=== PATIENT | female | born 1975 ===

== ENCOUNTER → 2022-04-29 10:17 | Outpatient (BNVA) | payer BC, SELFPAY | PROVIDERS: Visit Provider Family Medicine | DX: E78.5 Hyperlipidemia, unspecified (principal); R23.2 Flushing; F41.1 Generalized anxiety disorder | CPT/HCPCS: 80053; 80061; 84443; 85025 ==

== ENCOUNTER 2022-06-14 12:25 | Outpatient (CLI) | payer BC, SELFPAY ==
--- NOTE | 2022-06-14 13:45 | US_ITS ---
WS: [id number] RIGHT UPPER QUADRANT ULTRASOUND HISTORY: abd pain COMPARISON: None available. Liver: 12.1 cm in length. Normal size liver. No bile duct dilatation or mass. Portal Vein: Normal hepatopetal flow with monophasic waveform. Gallbladder: Normally distended gallbladder with no stones or wall thickening. CBD: 0.2 cm Pancreas: Normal size and echogenicity. Right kidney: 10.5 cm in length. Normal size and echogenicity. No hydronephrosis or mass. Aorta and IVC: Unremarkable abdominal aorta and IVC. No ascites. US/US gall bladder [id number] IMPRESSION: Normal RIGHT upper quadrant ultrasound.
== END 2022-06-14 12:26 | disposition home or self-care (01) ==
PROVIDERS: PCP Family Medicine; Visit Provider Surgery
DX: R10.9 Unspecified abdominal pain (principal)
CPT/HCPCS: 76705

== ENCOUNTER → 2022-07-19 17:47 | Outpatient (BNVA) | payer BC, SELFPAY | PROVIDERS: PCP Family Medicine; Visit Provider Family Medicine | DX: R50.9 Fever, unspecified (principal); J06.9 Acute upper respiratory infection, unspecified; R05.9 Cough, unspecified | CPT/HCPCS: 87400 ==

== ENCOUNTER → 2022-08-04 08:51 | Outpatient (BNVA) | payer BC, SELFPAY | PROVIDERS: PCP Family Medicine; Visit Provider Family Medicine Adult Medicine | DX: J02.8 Acute pharyngitis due to other specified organisms (principal); B97.89 Other viral agents as the cause of diseases classified elsewhere; J30.9 Allergic rhinitis, unspecified; J02.9 Acute pharyngitis, unspecified | CPT/HCPCS: 87071; 87880 ==

== ENCOUNTER → 2023-02-04 13:05 | Outpatient (BNVA) | payer BC, SELFPAY | PROVIDERS: PCP Family Medicine; Visit Provider Family Medicine | DX: R31.9 Hematuria, unspecified (principal); Z01.419 Encounter for gynecological examination (general) (routine) without abnormal findings; E78.5 Hyperlipidemia, unspecified | CPT/HCPCS: 87624 ==

== ENCOUNTER → 2023-02-09 08:32 | Outpatient (BNVA) | payer BC, SELFPAY | PROVIDERS: PCP Family Medicine; Visit Provider Family Medicine | DX: R31.9 Hematuria, unspecified (principal); E78.5 Hyperlipidemia, unspecified; F41.1 Generalized anxiety disorder | CPT/HCPCS: 80053; 80061; 81003; 87086 ==

== ENCOUNTER 2024-11-09 15:56 | Emergency (ER) | payer BC, SELFPAY ==
[2024-11-09 16:12] VITALS: BP 138/91; PULSE 83; RESP 15; TEMP 36.7; O2SAT 98; BMI 33.8
--- NOTE | 2024-11-09 17:27 | W.ED.GENADLT ---
Documented by User: FELY James 11/09/24 17:29 HPI - General Adult General: Chief complaint: General Medical Stated complaint: rabies Time Seen by Provider: 11/09/24 17:05 Source: patient Mode of arrival: ambulatory Limitations: no limitations History of Present Illness: Patient is a 49-year-old female presenting to the emergency department, stating she was referred by the health department for rabies vaccination series. Patient's dog reportedly got attacked by a skunk that recently tested positive for rabies. Patient also notes that in between this incident and now, the dog licked her on the mouth and this prompted her to call the health department. She has no symptoms to report, stating she is just here for the vaccinations. MD complaint: Present for rabies vaccination series Associated symptoms: Deny chest pain, dyspnea, headache(s), nausea, rash, palpitations or vomiting Related Data Home Medications ?Medication ?Instructions ?Recorded ?Confirmed acetaminophen 325 mg tablet 325 mg PO QID PRN 05/12/22 02/04/23 (Tylenol) docusate sodium 100 mg capsule 100 mg PO DAILY 05/12/22 02/04/23 (Stool Softener) Previous Rx's ?Medication ?Instructions ?Recorded fluticasone propionate 50 2 spray intranasal DAILY #16 grams 07/19/22 mcg/actuation nasal spray,suspension (Flonase Allergy Relief) benzonatate 200 mg capsule 200 mg PO BID PRN cough #14 caps 12/13/22 simvastatin 40 mg tablet See Rx Instructions .Route 06/08/23 .COMPLEX #90 tabs Allergies Allergy/AdvReac Type Severity Reaction Status Date / Time No Known Allergies Allergy Verified 02/04/23 13:18 Review of Systems General: Reports: 10 or more systems reviewed and unremarkable except in HPI and below Const: Reports: other (Present for rabies vaccination series); Denies: fever(s), chills or fatigue Eyes: Denies: change in vision ENMT: Denies: throat pain, ear or mastoid pain or nasal discharge Card: Denies: chest pain, palpitations, swelling of feet/ankles or lightheadedness Resp: Denies: dyspnea, productive cough or wheezing GI: Denies: abdominal pain, nausea, vomiting, diarrhea or constipation Musc: Denies: neck pain, back pain or joint pain Skin/Breast: Denies: rash Neuro: Denies: headache(s), numbness in extremities or weakness in extremities PFSH ED PFSH: Medical History Allergic pharyngitis Allergic rhinitis due to allergen Chronic low back pain Dyslipidemia MARY (generalized anxiety disorder) Hot flashes Migraines Surgical History History of partial hysterectomy Still has a cervix. Due to uterine fibroids. History of surgical removal of ganglion cyst Left wrist History of thumb surgery left History of tonsillectomy and adenoidectomy Hx of colonoscopy with polypectomy 7 yrs ago in [place] Social History Smoking and tobacco/nicotine status: current every day tobacco/nicotine user Quit status (tobacco/nicotine): considering quitting Alcohol intake: never Substance/Drug Use: never Physical Exam Const: COMMON NORMALS: no acute distress, patient oriented x3 and no limitations GENERAL APPEARANCE: cooperative, comfortable and well developed ORIENTATION/CONSCIOUSNESS: Yes awake, Yes oriented to person, Yes oriented to place and Yes oriented to time HENMT: COMMON NORMALS: normocephalic, atraumatic and hearing grossly normal bilaterally HEAD & SCALP: normocephalic and atraumatic Eye: COMMON NORMALS: Equal, round and reactive pupils present, EOMs intact bilaterally and conjunctivae normal CONJUNCTIVA: Yes conjunctivae normal PUPIL: Yes Equal, round and reactive pupils present Neck/C-Spine: COMMON NORMALS: full ROM, supple and no JVD Resp: COMMON NORMALS: normal respiratory effort, No retractions, No use of accessory muscles and clear to auscultation bilaterally AUSCULTATION: clear to auscultation bilaterally Cardio: COMMON NORMALS: no JVD, regular rate, regular rhythm, No clicks present (Cardio), No murmurs present (Cardio) and No rub (Cardio) RATE: regular rate RHYTHM: regular rhythm Extremity: COMMON NORMALS: normal to inspection, full ROM and capillary refill normal Neuro: COMMON NORMALS: patient oriented x3, moves all extremities, no focal motor deficits and no sensory deficits noted SENSORIUM/ORIENTATION: Yes oriented to person, Yes oriented to place and Yes oriented to time Psych: COMMON NORMALS: mental status grossly normal and Normal thought process present THOUGHT PROCESS: Normal thought process present Skin: COMMON NORMALS: no rashes or lesions noted GENERAL SKIN EXAM: no rashes or lesions noted Course Vital Signs: Vital signs: Vital Signs Temperature 98.1 F 11/09/24 16:12 Pulse Rate 83 11/09/24 16:12 Respiratory Rate 15 11/09/24 16:12 Blood Pressure 138/91 11/09/24 16:12 Pulse Oximetry 98 11/09/24 16:12 Oxygen Delivery Me thod Room Air 11/09/24 16:12 MDM - General Adult Medical Decision Making Patient presented for rabies vaccination series after she was left on a month by her dog who was attacked by rabies positive skunk in the past couple of days. HyperRAB and RabAvert were administered, she is given follow-up for subsequent RabAvert vaccinations. Vitals normal, asymptomatic. No radiology studies performed this visit Discharge Plan Discharge Patient Disposition: Home Clinical Impression: Exposure to rabies Condition: Stable Prescriptions: No Action docusate sodium [Stool Softener] 100 mg capsule 100 mg PO DAILY acetaminophen [Tylenol] 325 mg tablet 325 mg PO QID PRN fluticasone propionate [Flonase Allergy Relief] 50 mcg/actuation spray,suspension 2 spray intranasal DAILY Qty: 16 0RF Rx Instructions: administer into each nostril benzonatate 200 mg capsule 200 mg PO BID PRN (Reason: cough) Qty: 14 0RF simvastatin 40 mg tablet See Rx Instructions .ROUTE .COMPLEX Qty: 90 0RF Dose Instruction: Take 1 tablet by mouth nightly Rx Instructions: Take 1 tablet by mouth nightly Discharge Orders: Discharge ED (Routine); Ordered 11/09/24 Ordered By: Agus Dubon Patient Instructions: Rabies (ED) Activity Restrictions/Additional Instructions: Follow-up as directed for subsequent rabies vaccinations. Apply ice to injection site for any pain, take ibuprofen. Return with any new or worsening. Print Language: Kuwaiti Coding Level of Care Code ED [employer] for Ashli Mendez Documented by User: Marin Yoder DO 11/12/24 06:44 HPI - General Adult General: Chief complaint: General Medical Stated complaint: rabies Time Seen by Provider: 11/09/24 17:05 Related Data Home Medications ?Medication ?Instructions ?Recorded ?Confirmed acetaminophen 325 mg tablet 325 mg PO QID PRN 05/12/22 02/04/23 (Tylenol) docusate sodium 100 mg capsule 100 mg PO DAILY 05/12/22 02/04/23 (Stool Softener) Previous Rx's ?Medication ?Instructions ?Recorded fluticasone propionate 50 2 spray intranasal DAILY #16 grams 07/19/22 mcg/actuation nasal spray,suspension (Flonase Allergy Relief) benzonatate 200 mg capsule 200 mg PO BID PRN cough #14 caps 12/13/22 simvastatin 40 mg tablet See Rx Instructions .Route 06/08/23 .COMPLEX #90 tabs Allergies Allergy/AdvReac Type Severity Reaction Status Date / Time No Known Allergies Allergy Verified 02/04/23 13:18 PFS ED PFSH: Medical History Allergic pharyngitis Allergic rhinitis due to allergen Chronic low back pain Dyslipidemia MARY (generalized anxiety disorder) Hot flashes Migraines Surgical History History of partial hysterectomy Still has a cervix. Due to uterine fibroids. History of surgical removal of ganglion cyst Left wrist History of thumb surgery left History of tonsillectomy and adenoidectomy Hx of colonoscopy with polypectomy 7 yrs ago in [place] Social History Smoking and tobacco/nicotine status: current every day tobacco/nicotine user Quit status (tobacco/nicotine): considering quitting Alcohol intake: never Substance/Drug Use: never Course Vital Signs: Vital signs: Vital Signs Temperature 98.1 F 11/09/24 16:12 Pulse Rate 83 11/09/24 16:12 Respiratory Rate 15 11/09/24 16:12 Blood Pressure 138/91 11/09/24 16:12 Pulse Oximetry 98 11/09/24 16:12 Oxygen Delivery Me thod Room Air 11/09/24 16:12 MDM - General Adult Medical Decision Making Patient presented for rabies vaccination series after she was left on a month by her dog who was attacked by rabies positive skunk in the past couple of days. HyperRAB and RabAvert were administered, she is given follow-up for subsequent RabAvert vaccinations. Vitals normal, asymptomatic. Chart reviewed Discharge Plan Discharge Patient Disposition: Home Clinical Impression: Exposure to rabies Condition: Stable Prescriptions: No Action docusate sodium [Stool Softener] 100 mg capsule 100 mg PO DAILY acetaminophen [Tylenol] 325 mg tablet 325 mg PO QID PRN fluticasone propionate [Flonase Allergy Relief] 50 mcg/actuation spray,suspension 2 spray intranasal DAILY Qty: 16 0RF Rx Instructions: administer into each nostril benzonatate 200 mg capsule 200 mg PO BID PRN (Reason: cough) Qty: 14 0RF simvastatin 40 mg tablet See Rx Instructions .ROUTE .COMPLEX Qty: 90 0RF Dose Instruction: Take 1 tablet by mouth nightly Rx Instructions: Take 1 tablet by mouth nightly Discharge Orders: Discharge ED (Routine); Ordered 11/09/24 Ordered By: Agus Dubon Patient Instructions: Rabies (ED) Activity Restrictions/Additional Instructions: Follow-up as directed for subsequent rabies vaccinations. Apply ice to injection site for any pain, take ibuprofen. Return with any new or worsening. Print Language: [place]i Coding Level of Care Code ED [employer] for Ashli Mendez
[2024-11-09] MEDS: rabies IG 300 unit/mL SDV 1 mL 1620 UNIT IM (17:54)
[2024-11-09] MEDS: rabies vaccine 2.5 unit SDV IM (17:54)
== END 2024-11-09 18:11 | disposition home or self-care (01) ==
PROVIDERS: Emergency Provider Physician Assistant
DX: Z20.3 Contact with and (suspected) exposure to rabies (principal); Z72.0 Tobacco use; E78.5 Hyperlipidemia, unspecified; Z29.14 Encounter for prophylactic rabies immune globulin; Z23 Encounter for immunization
CPT/HCPCS: 90375; 90471; 90675; 96372; 99283

== ENCOUNTER 2024-11-16 08:00 | Oncology outpatient (recurring) (ONCR) | payer BC, SELFPAY ==
[2024-11-12 16:17] VITALS: BP 108/75; PULSE 82; RESP 16; TEMP 36.2; O2SAT 97
[2024-11-12] MEDS: rabies vaccine 2.5 unit SDV IM (16:19)
[2024-11-16] MEDS: rabies vaccine 2.5 unit SDV IM (08:05)
[2024-11-16 08:14] VITALS: BP 106/74; PULSE 69; RESP 18; TEMP 36.1; O2SAT 96
== END 2024-11-19 23:59 | disposition home or self-care (01) ==
PROVIDERS: Visit Provider Physician Assistant
DX: Z53.9 Procedure and treatment not carried out, unspecified reason; Z23 Encounter for immunization; Z20.3 Contact with and (suspected) exposure to rabies
CPT/HCPCS: 90471; 90675

== ENCOUNTER 2024-11-23 07:51 | Oncology outpatient (recurring) (ONCR) | payer BC, SELFPAY ==
[2024-11-23] MEDS: rabies vaccine 2.5 unit SDV IM (08:11)
== END 2024-12-19 23:59 | disposition home or self-care (01) ==
LOC: ONCMED 07:51
PROVIDERS: Visit Provider Physician Assistant
DX: Z23 Encounter for immunization (principal); Z20.3 Contact with and (suspected) exposure to rabies
CPT/HCPCS: 90471; 90675